=== PATIENT | female | born 1995 | race Caucasian/White ===

== ENCOUNTER 2024-02-06 19:40 | Emergency (ER) | payer SELFPAY ==
[2024-02-06 19:41] VITALS: BP 137/85; BMI 30.7
--- NOTE | 2024-02-06 20:10 | ED.GENMED ---
History of Present Illness
General
Chief Complaint: Crisis Evaluation
Source: patient
Exam Limitations: none
Time Seen by Provider: 02/06/24 19:51
Nursing documentation reviewed up to this point in time: agreed with
History of Present Illness
History of Present Illness:
Patient with history of bipolar disorder and anxiety disorder, presents to ED for medical evaluation after 302 petition was filed by her grandmother, secondary to depression, associated with suicidal thoughts and noncompliance with her medications.
Pt has been noted to speak to herself, along with intermittent verbal outbursts. Patient does report having taken methamphetamine yesterday, but denies use of any other illicit medications. Denies suicidal or homicidal ideation. Denies recent
illness. Patient otherwise has no other complaints.
Review of Systems
Review of Systems
Allergies reviewed?: Yes
All Other Systems: ROS reviewed and negative except as documented in HPI and ROS
Constitutional: Reports no symptoms
EENT: Reports no symptoms
Respiratory: Reports no symptoms
Cardiac: Reports no symptoms
ABD/GI: Reports no symptoms
Musculoskeletal: Reports no symptoms
Skin: Reports no symptoms
Neurological: Reports no symptoms
Phy Exam
Physical Exam
Physical Exam:
Physical Exam
General: no apparent distress, not acutely ill. afebrile
Head: nc/at. eomi
Neck: supple. no meningeal signs
Heart: s1/s2 regular rate and rhythm, no murmur. equal radial pulses.
Lungs: no acute respiratory distress. clear bilaterally
Abdomen: normal bowel sounds. not tender.
Neuro: alert and oriented. no focal neurological deficits
Skin: no rash
Psychiatric: well kept. interactive and cooperative
Extremities: no edema. no calf tenderness.
Course
Orders/Labs/Results
Orders:
Orders
02/06/24 19:56
Test Result ONCE
02/06/24 19:57
Alcohol Urgent
Basic Metabolic Panel Urgent
Complete Blood Count/With Diff Urgent
Fentanyl, Urine Urgent
HCG, Serum Qualitative Screen Urgent
[place] Urgent
Urine Drug Abuse Screen Urgent
Date Specimen was Collected: 02/06/24
Time Specimen was Collected: 19:56
02/06/24 20:01
Crisis Consult Urgent
Reason for Consult: suicidal ideation
02/06/24 23:03
Nicotine [Nicoderm Transdermal] 21 mg TRANSDERM NOW STA
02/07/24 03:25
Lorazepam [Ativan] 1 mg PO NOW STA
02/08/24 08:00
ARIPiprazole [Abilify] 5 mg PO DAILY
Abnormal Lab Results
02/06/24
19:57
Absolute Monos (auto) 0.8 H 10^3/uL
(0.1-0.6)
Monocytes % 9.4 H %
(1.7-9.3)
Chloride 108 H mmol/L
(98-107)
Carbon Dioxide 19 L mmol/L
(22-30)
Ur Amphetamines Screen Positive H
(Negative)
U Methamphetamines Scrn Positive H
(Negative)
[place] < 0.2 L mmol/L
(0.6-1.2)
Urine Cocaine Screen Positive H
(Negative)
02/06/24 19:57
02/06/24 19:57
Vital Signs
Initial and Last Documented VS:
Initial Vital Signs
Temp Pulse Resp BP Pulse Ox
97.8 F 103 16 137/85 97
02/06/24 19:41 02/06/24 19:41 02/06/24 19:41 02/06/24 19:41 02/06/24 19:41
Last Documented Vital Signs
Temp Pulse Resp BP Pulse Ox
97.9 F 87 17 115/73 98
02/07/24 00:05 02/07/24 15:04 02/07/24 15:04 02/07/24 15:04 02/07/24 15:04
MDM/Problems Addressed
MDM/Problems Addressed:
Patient is medically cleared. Awaiting tele-psychiatry evaluation.
302 petition upheld by tele-psychiatry. Pt will be transferred to in-patient psychiatric facility for further evaluation and treatment.
*Critical Care Note
Total Time (30-74mins, 75-104mins- exclusive of procedures): Not Applicable
ED Attending Note
-
Portions of this chart may have been created with voice recognition software.� Occasional wrong word or��sound alike� substitutions may have occurred due to the inherent limitations of voice recognition software.
Discharge Plan
Departure
Patient Disposition: Psych Facility
Date of Disposition: 02/06/24
Time of Disposition: 21:06
Patient Status:: 302
Discharge Problem:
Noncompliance with medication regimen, Suicide ideation
Prescriptions:
No Action
No Current Medications
0
Interventions
Interventions:
*Risk Screen - Suicide Last Done: 02/06/24 19:41
*General Assessment Last Done: 02/06/24 19:41
*Neglect/Abuse Screening Last Done: 02/06/24 19:41
*ED COVID-19 Vaccine History Last Done: 02/06/24 20:44
*Nursing Disposition Last Done: 02/07/24 18:05
ED-Psychological Assessment Last Done: 02/06/24 20:12
Discharge Date and Time
Discharge Date/Time: 02/07/24 18:06
Print Language: JAPANESE
[2024-02-06 20:15] LABS: % Basophils 0.6 % (0-2); % Immature Granulocytes 0.2 % (0-0.5); % Lymphocytes 26.3 % (20.5-51.1); % Monocytes 9.4 % (1.7-9.3); % Neutrophils 61.5 % (42.2-75.2); Absolute Basophils 0.1 10^3/uL (0-0.2); Absolute Eosinophils 0.2 10^3/uL (0-0.7); Absolute Lymphocytes 2.1 10^3/uL (1.2-3.4); Absolute Monocytes 0.8 10^3/uL (0.1-0.6); Hematocrit 43.1 % (37.0-47.0); Hemoglobin 14.6 g/dL (12.0-16.0); Mean Corp Hgb Conc. 33.9 g/dL (33.0-37.0); Mean Corpuscular Hgb 30.8 pg (27.0-31.0); Mean Corpuscular Volume 90.9 fL (81.0-99.0); Mean Platelet Volume 9.4 fL (7.4-10.4); Nucleated Red Blood Cells % 0 %; Platelet Count 256 10^3/uL (130-400); Red Blood Cell Count 4.74 10^6/uL (4.20-5.40); Red Cell Dist. Width 12.9 % (11.5-14.5); White Blood Cell Count 8.1 10^3/uL (4.8-10.8)
[2024-02-06 20:26] LABS: HCG, Serum Qualitative Screen Negative
[2024-02-06 20:30] LABS: Amphetamines Positive (Negative); Blood Urea Nitrogen 15 mg/dl (7-17); Calcium 9.8 mg/dl (8.4-10.2); Carbon Dioxide 19 mmol/L (22-30); Chloride 108 mmol/L (98-107); Estimated Creatinine Clearance 104 ml/min; Glucose 81 mg/dl (70-99); Potassium 4.3 mmol/L (3.5-5.1); Sodium 139 mmol/L (135-145); eGFR > 60.00
[2024-02-06 20:32] LABS: Barbiturates Negative (Negative); Benzodiazepines Negative (Negative); Buprenorphine Negative (Negative); Cocaine Positive (Negative); Marijuana Negative (Negative); Methadone Negative (Negative); Methamphetamines Positive (Negative); Opiates Negative (Negative); Phencyclidine Negative (Negative); Tricyclic Antidepressants Negative (Negative)
[2024-02-06 20:44] LABS: Fentanyl, Urine Negative (Negative); Lithium < 0.2 mmol/L (0.6-1.2)
[2024-02-06 20:46] LABS: Alcohol None Detected
[2024-02-06] MEDS: NICODERM TRANSDERMAL 21 MG TRANSDERM (23:09)
[2024-02-07 00:05] VITALS: BP 136/74
[2024-02-07] MEDS: ATIVAN 1 MG PO (03:30)
--- NOTE | 2024-02-07 14:39 | W.PN.UPDATE ---
Update Note
Progress Note Update
Pt seen, reviewed 302 and tele-psych eval, Crisis assessment. Pt brought in on 302 due to reported psychotic symptoms and suicidal statements. Pt seen lying on stretcher, calm, cooperative. Affect dysphoric, somewhat detached, states she would
have gone inpatient voluntarily prior to 302 by grandmother. 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 No overt signs of hallucinations or guerline delusions this afternoon. Pt minimizing risk to self, although 302 states pt
had a bottle of [place] hidden under her pillow. Pt reports she has been prescribed [place], Abilify, Wellbutrin XL. UDS + for cocaine, methamphetamine.
Imp: Bipolar d/o, depressed, by history
Unspecified psychotic d/o, R/o substance-induced vs secondary to mood disturbance/stress/sleep deprivation
Rec: continue eval/stabilization on 302. Mother provided insurance information; Crisis should be able to find inpatient psych placement
will follow
[2024-02-07 15:04] VITALS: BP 115/73
== END 2024-02-07 18:06 ==
LOC: EMR 19:40
PROVIDERS: EMERGENCY PHYSICIAN Emergency Medicine
DX: R45.851 Suicidal ideations (principal); F32.A Depression, unspecified; F31.9 Bipolar disorder, unspecified; F15.90 Other stimulant use, unspecified, uncomplicated; Z91.148 Patient's other noncompliance with medication regimen for other reason; F41.9 Anxiety disorder, unspecified
CPT/HCPCS: 99285; 80048; 80178; 80306; 80307; 82077; 84703; 85025